=== PATIENT | female | born 1965 | race Caucasian/White ===

== ENCOUNTER 2017-09-11 19:13 | Emergency (ER) | payer MEDICAID ==
[~2017-09-11] VITALS: Ht 157.5 cm; Wt 59.9 kg
[~2017-09-11 19:13] MED LIST: ARIP20TA PO; CLON0.5T3 PO; DCS100C PO; HYDR-3454 PO; MEMA28CA PO; QTP200T PO
[2017-09-11] MEDS ORDERED: HYDR50TA76 (19:29)
--- NOTE | 2017-09-11 19:39 | ED Cough/URI ---
General Chief Complaint: Cough/Cold/Flu Symptoms Stated Complaint: EAR ACHE;SORE THROAT Nursing Triage Note: COUGH, EAR PAIN, SORE THROAT, UTI SX Source: patient Exam Limitations: no limitations History of Present Illness Time seen by provider: 19:38 Initial Comments To ER with reports of nasal congestion, earache, hoarseness, sore throat and productive cough as well as urinary frequency and burning since Thanksgi. Timing/Duration: week Associated Symptoms: denies symptoms Allergies and Home Medications Allergies Coded Allergies: risperidone (Unverified Allergy, Unknown, PT CAN'T REMEMBER REACTION TO LONG AGO, 04/26/14) Home Medications Hydroxyzine HCl 50 Mg Tablet, (Reported) Quetiapine Fumarate 200 Mg Tablet, 400 MG PO BID, (Reported) TAKE 2 (200MG) TABS Constitutional: see HPI EENTM: see HPI Respiratory: no symptoms reported Cardiovascular: no symptoms reported Genitourinary: no symptoms reported Musculoskeletal: no symptoms reported Skin: no symptoms reported Psychiatric/Neurological: No Symptoms Reported Hematologic/Lymphatic: No Symptoms Reported Past Wsvwajy-Gjvppk-Xdacla Hx Patient Social History Alcohol Use: Denies Use Recreational Drug Use: No Smoking Status: Current Everyday Smoker Type Used: Cigarettes 2nd Hand Smoke Exposure: Yes Recent Foreign Travel: No Contact w/Someone Who Travel: No Recent Infectious Disease Expo: No Recent Hopitalizations: No Immunizations Up To Date Tetanus Booster (TDap): Unknown Seasonal Allergies Seasonal Allergies: No Surgeries History of Surgeries: Yes (OPEN LSO, ) Respiratory History of Respiratory Disorde: No Cardiovascular History of Cardiac Disorders: No Neurological History of Neurological Disord: No Reproductive System : 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 Genitourinary History of Genitourinary Disor: No Gastrointestinal History of Gastrointestinal Di: No Musculoskeletal History of Musculoskeletal Dis: No Endocrine History of Endocrine Disorders: No HEENT History of HEENT Disorders: No Cancer History of Cancer: No Psychosocial History of Psychiatric Problem: Yes Behavioral Health Disorders: Anxiety, Depression Integumentary History of Skin or Integumenta: No Blood Transfusions History of Blood Disorders: No Physical Exam Vital Signs Vital Sign - Last 12Hours 09/11/17 19:20 Temp 98.4 Pulse 106 Resp 18 B/P (MAP) 116/42 Pulse Ox 96 O2 Delivery Room Air Capillary Refill : Less Than 3 Seconds General Appearance: WD/WN, no apparent distress Eyes: Bilateral Eye Normal Inspection, Bilateral Eye PERRL, Bilateral Eye EOMI HEENT: PERRL/EOMI, normal ENT inspection, TMs normal Neck: non-tender, full range of motion Respiratory: normal breath sounds, no respiratory distress, no accessory muscle use Gastrointestinal: normal bowel sounds, non tender, soft Extremities: normal range of motion, non-tender Neurologic/Psychiatric: alert, normal mood/affect, oriented x 3 Skin: normal color, warm/dry Progress/Results/Core Measures Suspected Sepsis Recent Fever Within 48 Hours: No Infection Criteria Present: None New/Unexplained Altered Menta: No Sepsis Screen: No Definite Risk Sepsis Diagnosis: SIRS Temperature:98.4 Pulse: 106 Respiratory Rate: 18 Blood Pressure 116 /42 Mean: 66 Results/Orders Lab Results Laboratory Tests Test 09/11/17 19:30 Range/Units My Orders Orders - MANINDER AGUILAR APRN Ua Culture If Indicated (09/11/17 19:27) Vital Signs/I&O Vital Sign - Last 12Hours 09/11/17 09/11/17 19:20 19:20 Temp 98.4 Pulse 106 Resp 18 B/P (MAP) 116/42 Pulse Ox 96 O2 Delivery Room Air Room Air Capillary Refill : Less Than 3 Seconds Blood Pressure Mean: 66 Departure Impression Impression: Primary Impression: Bronchitis Disposition: 01 HOME, SELF-CARE Condition: Stable Departure-Patient Inst. Decision time for Depature: 19:51 Referrals: NO,LOCAL PHYSICIAN (PCP) Primary Care Physician Patient Instructions: Acute Bronchitis, Adult (DC) Add. Discharge Instructions: 1. Return to ER for any concerns 2. Follow-up with your doctor next week 3. Medication as directed All discharge instructions reviewed with patient and/or family. Voiced understanding. Scripts Azithromycin (Azithromycin) 250 Mg Tablet 250 MG PO UD, #6 TAB TAKE 2 TABLETS ON DAY ONE THEN TAKE 1 TABLET DAILY FOR FOUR MORE DAYS Prov: MANINDER AGUILAR APRN 09/11/17 MANINDER AGUILAR APRN Sep 11, 2017 19:39
[2017-09-11 19:47] LABS: BILIRUBIN,URINE NEGATIVE (NEGATIVE); KETONES,URINE NEGATIVE (NEGATIVE); LEUKOCYTE ESTERASE ,URINE 1+ (NEGATIVE); NITRITE,URINE NEGATIVE (NEGATIVE); PH,URINE 8 (5-9); PROTEIN,URINE 1+ (NEGATIVE); UROBILINOGEN,URINE 1 MG/DL (NORMAL)
[2017-09-11] MEDS ORDERED: AZIT250T12 PO (19:52)
[2017-09-11 20:20] VITALS: BP 116/42
== END 2017-09-11 20:18 | disposition home or self-care (01) ==
LOC: EDUNIT# 19:13 → ER 19:15
DX: J40 Bronchitis, not specified as acute or chronic (principal); F41.9 Anxiety disorder, unspecified; F32.9 Major depressive disorder, single episode, unspecified; F17.210 Nicotine dependence, cigarettes, uncomplicated
CPT/HCPCS: 81000; 99282

== ENCOUNTER 2021-07-05 22:50 | Emergency (ER) | payer MEDICAID ==
[~2021-07-05] VITALS: Ht 157 cm; Wt 56.6 kg
[~2021-07-05 22:50] MED LIST changes: +AZIT250T12 PO; +HYDR50TA76
[2021-07-06 01:48] LABS: BASOPHILS # (AUTO) 0.1 10^3/uL (0.0-0.1); BASOPHILS % (AUTO) 1 % (0-10); EOSINOPHILS # (AUTO) 0.1 10^3/uL (0.0-0.3); EOSINOPHILS % (AUTO) 1 % (0-10); HEMATOCRIT 47 % (35-52); HEMOGLOBIN 15.3 g/dL (11.5-16.0); LYMPHOCYTES # (AUTO) 3.8 10^3/uL (1.0-4.0); LYMPHOCYTES % (AUTO) 35 % (12-44); MEAN CORPUSCULAR HEMOGLOBIN 31 pg (25-34); MEAN CORPUSCULAR HGB CONC 33 g/dL (32-36); MEAN CORPUSCULAR VOLUME 95 fL (80-99); MEAN PLATELET VOLUME 9.3 fL (9.0-12.2); MONOCYTES % (AUTO) 9 % (0-12); NEUTROPHILS # (AUTO) 6.1 10^3/uL (1.8-7.8); NEUTROPHILS % (AUTO) 55 % (42-75); PLATELET COUNT 268 10^3/uL (130-400)
[2021-07-06 01:49] LABS: BUN/CREATININE RATIO 14; CARBON DIOXIDE 22 MMOL/L (21-32); CHLORIDE 105 MMOL/L (98-107); CREATININE SERUM 0.88 MG/DL (0.60-1.30); GFR ESTIMATED 66; POTASSIUM 3.3 MMOL/L (3.6-5.0); SODIUM 142 MMOL/L (135-145)
[2021-07-06 01:50] LABS: ACETAMINOPHEN < 10 UG/ML (10-30); ALANINE AMINOTRANSFERASE 15 U/L (0-55); ALBUMIN 4.5 GM/DL (3.2-4.5); ALKALINE PHOSPHATASE 83 U/L (40-136); BILIRUBIN,TOTAL 0.4 MG/DL (0.1-1.0); CALCIUM 9.9 MG/DL (8.5-10.1); GLUCOSE 92 MG/DL (70-105); TOTAL PROTEIN 7.8 GM/DL (6.4-8.2)
[2021-07-06 01:54] LABS: BACTERIA,URINE NEGATIVE /HPF; BILIRUBIN,URINE NEGATIVE (NEGATIVE); CLARITY,URINE CLEAR; COLOR,URINE YELLOW; GLUCOSE, URINE (UA) NEGATIVE (NEGATIVE); KETONES,URINE 1+ (NEGATIVE); LEUKOCYTE ESTERASE ,URINE NEGATIVE (NEGATIVE); NITRITE,URINE NEGATIVE (NEGATIVE); PROTEIN,URINE NEGATIVE (NEGATIVE)
[2021-07-06 01:55] LABS: SQUAMOUS EPITHELIAL CELL,UR 0-2 /HPF
[2021-07-06 02:07] LABS: AMPHETAMINE SCREEN, URINE NEGATIVE (NEGATIVE); BARBITURATE SCREEN URINE NEGATIVE (NEGATIVE); BENZODIAZEPINES SCREEN URINE NEGATIVE (NEGATIVE); CANNABINOID SCREEN, URINE POSITIVE (NEGATIVE); COCAINE SCREEN URINE NEGATIVE (NEGATIVE); METHADONE STAT NEGATIVE (NEGATIVE); METHAMPHETAMINE SCREEN URINE S NEGATIVE (NEGATIVE); OPIATE SCREEN URINE NEGATIVE (NEGATIVE); OXYCODONE STAT NEGATIVE (NEGATIVE); PROPOXYPHENE STAT NEGATIVE (NEGATIVE); TRICYCLIC ANTIDEPRESSANTS SCRE NEGATIVE (NEGATIVE)
[2021-07-06] MEDS ORDERED: RT-ALBUTEROL/IPRATROPIUM 3 ML (DUONEB) VIAL INH ONE (03:45)
--- NOTE | 2021-07-06 04:02 | ED Psychosocial ---
General Chief Complaint: Overdose Stated Complaint: ANXIETY Nursing Triage Note: PT PRESENTS TO THE ED AFTER SWALLOWING A HANDFUL OF HER PRESCRIBED TRAZADONE AT HOME AROUND 2129 AFTER AN ARGUEMENT WITH S/O. PT STATES SHORTLY AFTER INGESTING THE MEDS SHE REGRETTED DOING IT, DENIES BEING SUICIDAL UPON PRESENTATION TO THE ED. EMS REPORT THAT THE PT WAS FOUND ON THE PORCH WITH A BAG PACKED ON ARRIVAL, PT ALERT AND ORIENTED ON ARRIVAL TO ED. Source: patient, EMS Exam Limitations: no limitations (MONE ALONZO MD) History of Present Illness Date Seen by Provider: Jul 05, 2021 Time Seen by Provider: 22:51 Initial Comments This 56-year-old woman presents to the emergency room via EMS after an intentional ingestion of a "handful" of trazodone 50 mg tablets and 4 or 5 hydroxyzine tablets in an attempt to self-harm. She was feeling suicidal at the time, and these emotions were triggered by an argument with her significant othe r in which she was accused of infidelity. She has a history of suicide attempt in the past by overdose. She was admitted at [facility] in [place] after that attempt about 6 years ago. Vital signs are stable at this time. Patient states now that she feels her actions were "stupid". However, she still feels suicidal and unsafe returning home. She reports home is not a stable environment or supportive due to relationship tensions. (MONE ALONZO MD) Allergies and Home Medications Allergies Coded Allergies: risperidone (Unverified Allergy, Unknown, PT CAN'T REMEMBER REACTION TO LONG AGO, 04/26/14) Patient Home Medication List Home Medication List Reviewed: Yes (MONE ALONZO MD) Azithromycin (Azithromycin) 250 Mg Tablet, 250 MG PO UD Prescribed by: MANINDER AGUILAR on 09/11/171951 Hydroxyzine HCl (Hydroxyzine HCl) 50 Mg Tablet, (Reported) Entered as Reported by: JOSE F MESA on 09/11/171928 Quetiapine Fumarate (Seroquel 200 Mg) 200 Mg Tablet, 400 MG PO BID, (Reported) Entered as Reported by: ZACHARY TOTH on 04/26/14 0939 Review of Systems Constitutional: other (Somnolent) EENTM: no symptoms reported Respiratory: no symptoms reported Cardiovascular: no symptoms reported Gastrointestinal: no symptoms reported Genitourinary: no symptoms reported : No Musculoskeletal: no symptoms reported Skin: no symptoms reported Psychiatric/Neurological: See HPI (MONE ALONZO MD) Past Wllzfnh-Vyayzi-Frlhec Hx Patient Social History Tobacco Use?: Yes Tobacco type used: Cigarettes Substance use?: Yes Substance type: Marijuana Substance frequency: Daily Alcohol Use?: No (MONE ALONZO MD) Immunizations Up To Date Tetanus Booster (TDap): Unknown Influenza Vaccine Up-to-Date: No; Not Current (MONE ALONZO MD) Seasonal Allergies Seasonal Allergies: No (MONE ALONZO MD) Past Medical History Surgery/Hospitalization HX: LEFT OVARY REMOVED Surgeries: Yes (OPEN LSO, ) Respiratory: Yes COPD Cardiac: No Neurological: No 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 oz. 59.514590qw; 22.00 BMI Method:Stated General Appearance: WD/WN, no apparent distress, thin HEENT: PERRL/EOMI, normal ENT inspection Neck: normal inspection Respiratory: lungs clear, normal breath sounds, no respiratory distress Cardiovascular: regular rate, rhythm, no edema, no murmur Gastrointestinal: non tender, soft Extremities: normal inspection, no pedal edema Neurologic/Psychiatric: sample box maker II-XII nml as tested, no motor/sensory deficits, alert, oriented x 3, other (Patient reports active suicidal ideation) Appearance/Memory: appropriate insight, disheveled Behavior/Eye Contact: cooperative, good eye contact, normal speech Skin: normal color, warm/dry (MONE ALONZO MD) Progress/Results/Core Measures Results/Orders Lab Results Laboratory Tests Test 07/05/21 23:10 07/06/21 03:43 07/06/21 03:47 Range/Units White Blood Count 11.0 4.3-11.0 10^3/uL Red Blood Count 4.89 3.80-5.11 10^6/uL Hemoglobin 15.3 11.5-16.0 g/dL Hematocrit 47 35-52 % Mean Corpuscular Volume 95 80-99 fL Mean Corpuscular Hemoglobin 31 25-34 pg Mean Corpuscular Hemoglobin Concent 33 32-36 g/dL Red Cell Distribution Width 12.8 10.0-14.5 % Platelet Count 268 130-400 10^3/uL Mean Platelet Volume 9.3 9.0-12.2 fL Immature Granulocyte % (Auto) 0 % Neutrophils (%) (Auto) 55 42-75 % Lymphocytes (%) (Auto) 35 12-44 % Monocytes (%) (Auto) 9 0-12 % Eosinophils (%) (Auto) 1 0-10 % Basophils (%) (Auto) 1 0-10 % Neutrophils # (Auto) 6.1 1.8-7.8 10^3/uL Lymphocytes # (Auto) 3.8 1.0-4.0 10^3/uL Monocytes # (Auto) 1.0 0.0-1.0 10^3/uL Eosinophils # (Auto) 0.1 0.0-0.3 10^3/uL Basophils # (Auto) 0.1 0.0-0.1 10^3/uL Immature Granulocyte # (Auto) 0.0 0.0-0.1 10^3/uL Urine Color YELLOW Urine Clarity CLEAR Urine pH 6.0 5-9 Urine Specific [place] <=1.005 1.016-1.022 Urine Protein NEGATIVE NEGATIVE Urine Glucose (UA) NEGATIVE NEGATIVE Urine Ketones 1+ H NEGATIVE Urine Nitrite NEGATIVE NEGATIVE Urine Bilirubin NEGATIVE NEGATIVE Urine Urobilinogen 0.2 < = 1.0 MG/DL Urine Leukocyte Esterase NEGATIVE NEGATIVE Urine RBC (Auto) 1+ H NEGATIVE Urine RBC NONE /HPF Urine WBC NONE /HPF Urine Squamous Epithelial Cells 0-2 /HPF Urine Crystals NONE /LPF Urine Bacteria NEGATIVE /HPF Urine Casts NONE /LPF Urine Mucus NEGATIVE /LPF Urine Culture Indicated NO Sodium Level 142 135-145 MMOL/L Potassium Level 3.3 L 3.6-5.0 MMOL/L Chloride Level 105 98-107 MMOL/L Carbon Dioxide Level 22 21-32 MMOL/L Anion Gap 15 H 5-14 MMOL/L Blood Urea Nitrogen 12 7-18 MG/DL Creatinine 0.88 0.60-1.30 MG/DL Estimat Glomerular Filtration Rate 66 BUN/Creatinine Ratio 14 Glucose Level 92 70-105 MG/DL Calcium Level 9.9 8.5-10.1 MG/DL Corrected Calcium 9.5 8.5-10.1 MG/DL Total Bilirubin 0.4 0.1-1.0 MG/DL Aspartate Amino Transf (AST/SGOT) 17 5-34 U/L Alanine Aminotransferase (ALT/SGPT) 15 0-55 U/L Alkaline Phosphatase 83 40-136 U/L Total Protein 7.8 6.4-8.2 GM/DL Albumin 4.5 3.2-4.5 GM/DL Urine Opiates Screen NEGATIVE NEGATIVE Urine Oxycodone Screen NEGATIVE NEGATIVE Urine Methadone Screen NEGATIVE NEGATIVE Urine Propoxyphene Screen NEGATIVE NEGATIVE Acetaminophen Level < 10 L 10-30 UG/ML Urine Barbiturates Screen NEGATIVE NEGATIVE Ur Tricyclic Antidepressants Screen NEGATIVE NEGATIVE Urine Phencyclidine Screen NEGATIVE NEGATIVE Urine Amphetamines Screen NEGATIVE NEGATIVE Urine Methamphetamines Screen NEGATIVE NEGATIVE Urine Benzodiazepines Screen NEGATIVE NEGATIVE Urine Cocaine Screen NEGATIVE NEGATIVE Urine Cannabinoids Screen POSITIVE H NEGATIVE Serum Alcohol < 10 <10 MG/DL SARS-CoV-2 RNA (RT-PCR) Not Detected Not Detecte Salicylates Level < 5.0 L 5.0-20.0 MG/DL (ALEXANDRA NEVAREZ DO) My Orders Orders - ALEXANDRA NEVAREZ DO Ed Iv/Invasive Line Start (07/06/21 09:10) Lactated Ringers (Lr 1000 Ml Iv Solution (07/06/21 09:15) General/Regular (07/06/21 Breakfast) (ALEXANDRA NEVAREZ DO) Medications Given in ED Current Medications Medications Dose Ordered Sig/Mark Anthony Route Start Time Stop Time Status Last Admin Dose Admin Albuterol/ Ipratropium 3 ml ONCE ONCE INH 07/06/21 03:45 07/06/21 03:46 DC 07/06/21 03:50 3 ML Lactated Ringer's 1,000 ml @ 0 mls/hr Q0M ONCE IV 07/06/21 04:30 9/23/21 04:31 DC 07/06/21 04:30 1,000 MLS/HR Lactated Ringer's 1,000 ml @ 0 mls/hr Q0M ONCE IV 07/06/21 09:15 07/06/21 09:16 DC 07/06/21 09:16 0 MLS/HR (ROQUEALEXANDRA K DO) Vital Signs/I&O 07/05/21 22:50 Temp 36.3 Pulse 94 Resp 16 B/P (MAP) 125/69 (87) Pulse Ox 96 O2 Delivery Room Air (ROQUEMICHAELA K DO) Blood Pressure Mean: 87 Progress Progress Note #1: Time: 04:03 Progress Note Patient has been medically cleared from a poison control perspective. She is now 6 hours post ingestion and stable. She was monitored with serial EKGs. A Covid screening swab is pending as this is required by most receiving facilities. Patient was briefly treated with supplemental oxygen as her oxygen saturation was around 91 to 92% while sleeping. She does report previously being prescribed oxygen therapy for COPD but she does not use it at home. She is presently stable on room air. We will administer a DuoNeb treatment to help support her respiratory status. Patient denies any increase in shortness of breath or chronic cough. It does not seem that a safety plan is a viable option for the patient at this time given her none stable social environment at home and her statements about feeling unsafe if discharged. I have contacted [facility] where she was admitted previously. They have no regional beds at this time. [facility] does have bed availability and will review her chart once the Covid screening test results. Progress Note #2: Time: 04:39 Progress Note Chest x-ray and Covid screen were both negative. Patient received a DuoNeb treatment and her oxygen saturations are now in the high 90s. She has had some borderline systolic blood pressures which appear to be positional as she likes to lay on her side. We are infusing a liter of IV fluid as a precaution. She is now medically stable for admission to a psychiatric facility. (MONE ALONZO MD) Progress Note : Progress Note ASSUMED CARE OF PT AT SHIFT CHANGE. PENDING CALL FROM [facility] AFTER REVIEWING TEST RESULTS. PT IS RESTING QUIETLY. VITALS STABLE AT THIS TIME (ALEXANDRA NEVAREZ DO) EKG #1: EKG Time: 23:05 Rate: 68 Rhythm: Normal Sinus Intervals: Normal ECG Impression: Normal Comment Normal sinus rhythm with no ST elevation or depression. No abnormal intervals or axis deviation. EKG #2: EKG Time: 01:08 Rate: 70 Rhythm: Normal Sinus Intervals: Normal ECG Impression: Normal Comment Normal sinus rhythm with no ST elevation or depression. No abnormal intervals or axis deviation. EKG #3: EKG Time: 03:04 Rate: 66 Rhythm: Normal Sinus Intervals: Normal ECG Impression: Normal Comment Normal sinus rhythm with no ST elevation or depression. No abnormal intervals or axis deviation. (MONE ALONZO MD) Diagnostic Imaging Diagonstic Imaging: Xray Plain Films/CT/US/NM/MRI: chest Comments Chest x-ray reviewed by me. Report not yet available. No acute abnormalities were appreciated. (MONE ALONZO MD) Departure Communication (Admissions) 0735--CALLED [facility], THEY WERE WAITING ON US TO SEND TEST RESULTS, REVIEWED THEM VERBALLY WITH STAFF MEMBER. THEY ARE NOW PAGING PSYCHIATRIST. 0750--[facility] CALLED. DR. MCDONALD WANTING PT'S INFORMATION FAXED TO HIS PERSONAL FAX MACHINE--RE-FAXED TO HIM. 0908--CALLED [facility] FOR UPDATE ON STATUS. DR. MCDONALD RECEIVED ALL INFORMATION. THEY ARE NOW WAITING FOR RESIDENT, DR. BLANKENSHIP, TO CALL BACK 0918--[facility] CALLED. SPOKE WITH DR. BLANKENSHIP, ACCEPTS PT FOR ADMIT/TRANSFER. 0930--[facility]END[facility] HAS BEEN CONTACTED FOR TRANSPORT. HE WILL BE HERE AROUND 11:30 THIS AM. (ALEXANDRA NEVAREZ DO) Impression Primary Impression: Deliberate medication overdose Qualified Codes: T50.902A - Poisoning by unspecified drugs, medicaments and biological substances, intentional self-harm, initial encounter Additional Impressions: Suicidal ideation COPD (chronic obstructive pulmonary disease) Qualified Codes: J44.9 - Chronic obstructive pulmonary disease, unspecified Disposition: 65 XFER TO PSYCH HOSP/UNIT Condition: Stable Transfer Transfer Reason: Exceeds level of care Method of Transfer: (MONE ALONZO MD) Departure-Patient Inst. Referrals: NO,LOCAL PHYSICIAN (PCP/Family) Primary Care Physician Patient Instructions: ALCOHOL AND SUBSTANCE ABUSE MONE ALONZO MD Jul 06, 2021 04:02 ALEXANDRA NEVAREZ DO Jul 06, 2021 07:42
[2021-07-06] MEDS ORDERED: LACTATED RINGERS 1,000 ML IV ONE ×2 (04:30→09:15)
--- NOTE | 2021-07-06 08:10 | Diagnostic Imaging Report ---
EXAMINATION: Chest radiograph, portable AP view. DATE: 07/06/2021 4:41 AM INDICATION: 56-year-old female, shortness of breath. History of chronic obstructive pulmonary disease. COMPARISON: None. FINDINGS: Heart size and mediastinal contours are unremarkable. There is no identified pneumothorax. There is no large pleural effusion. There is no identified focal airspace consolidation. IMPRESSION: No identified acute cardiopulmonary abnormality. Dictated by: Dictated on workstation # [id number]
[2021-07-06 11:43] VITALS: BP 109/46
== END 2021-07-06 11:43 ==
LOC: EDUNIT# 22:50 → ER 22:51
DX: T43.212A Poisoning by selective serotonin and norepinephrine reuptake inhibitors, intentional self-harm, initial encounter (principal); J44.9 Chronic obstructive pulmonary disease, unspecified; F41.9 Anxiety disorder, unspecified; F32.9 Major depressive disorder, single episode, unspecified; Z72.0 Tobacco use; Z20.822 Contact with and (suspected) exposure to COVID-19; Z79.899 Other long term (current) drug therapy; X83.8XXA Intentional self-harm by other specified means, initial encounter
CPT/HCPCS: 36415; 71045; 80053; 80306; 80320; 80329; 81000; 85025; 87636; 93005